=== PATIENT | male | born 1945 | race Caucasian/White ===

== ENCOUNTER 2021-12-13 08:13 | Outpatient (CLI) | payer MEDICARE, BC, SELFPAY ==
[2021-12-13 13:56] LABS: Iron* 50 ug/dL (49-181)
[2021-12-13 14:00] LABS: Albumin* 4.5 g/dL (3.3-5.0); Chloride* 104 mmol/L (96-114)
[2021-12-13 14:01] LABS: Potassium* 4.8 mmol/L (3.6-5.1); Sodium* 137 mmol/L (135-149)
[2021-12-13 14:03] LABS: Alanine Aminotransferase* 28 U/L (4-50); Alkaline Phosphatase* 89 U/L (40-150); Aspartate Amino Transferase* 24 U/L (12-35); Bilirubin Total* 0.6 mg/dL (0.1-1.5); Blood Urea Nitrogen* 20 mg/dL (7-30); Carbon Dioxide* 24 mmol/L (20-32); Cholesterol* 154 mg/dL (90-199); Creatinine* 1.3 mg/dL (0.5-1.5); Estimated Glomerular Filt Rate 58 ml/min; Glucose* 129 mg/dL (60-115); Total Protein* 6.9 g/dL (6.0-8.3)
[2021-12-13 14:04] LABS: Calcium* 9.5 mg/dL (8.4-10.6); HDL Cholesterol* 46 mg/dL (>=40); LDL Cholesterol Calculated 69 mg/dL (<100); Triglycerides* 194 mg/dL (40-149)
[2021-12-13 14:05] LABS: Percent Iron Saturation 11 % (20-50); Total Iron Binding Capacity 437 ug/dL (261-462)
[2021-12-13 14:33] LABS: PSA Screen* 0.82 ng/mL (0.10-4.00)
[2021-12-13 14:39] LABS: Ferritin* 8.2 ng/mL (17.9-464.0)
== END 2021-12-13 08:14 | disposition home or self-care (01) ==
LOC: LKVREF 08:15
PROVIDERS: PCP Family Medicine; Visit Provider Family Medicine
DX: D64.9 Anemia, unspecified (principal); E11.9 Type 2 diabetes mellitus without complications; E78.5 Hyperlipidemia, unspecified; I10 Essential (primary) hypertension; I25.10 Atherosclerotic heart disease of native coronary artery without angina pectoris
CPT/HCPCS: 80053; 80061; 82043; 82570; 82728; 83540; 83550; 84153

== ENCOUNTER 2022-04-03 10:42 | Outpatient (CLI) | payer MEDICARE, BC, SELFPAY ==
[2022-04-03 22:10] LABS: Iron* 47 ug/dL (49-181)
[2022-04-03 22:43] LABS: Ferritin* 9.2 ng/mL (17.9-464.0)
[2022-04-03 22:47] LABS: Creatinine Urine 102.8 mg/dL
[2022-04-03 22:53] LABS: Microalbumin Creatinine Ratio 0 mg/g (0-30); Microalbumin Urine 1 mg/dL
[2022-04-03 23:28] LABS: Vitamin B12* 386 pg/mL (243-894)
== END 2022-04-03 10:43 | disposition home or self-care (01) ==
PROVIDERS: PCP Family Medicine; Visit Provider Family Medicine
DX: Z00.00 Encounter for general adult medical examination without abnormal findings (principal); D64.9 Anemia, unspecified; E11.9 Type 2 diabetes mellitus without complications; E78.5 Hyperlipidemia, unspecified; I10 Essential (primary) hypertension
CPT/HCPCS: 82043; 82570; 82607; 82728; 83540

== ENCOUNTER 2023-04-05 16:10 | Outpatient (CLI) | payer MEDICARE, BC, SELFPAY | END 2023-04-05 16:11 | disposition home or self-care (01) | PROVIDERS: PCP Family Medicine; Visit Provider Family Medicine | DX: Z00.00 Encounter for general adult medical examination without abnormal findings (principal); E78.5 Hyperlipidemia, unspecified; E11.9 Type 2 diabetes mellitus without complications; E88.810 Metabolic syndrome; I25.10 Atherosclerotic heart disease of native coronary artery without angina pectoris; N40.0 Benign prostatic hyperplasia without lower urinary tract symptoms; Z86.79 Personal history of other diseases of the circulatory system | CPT/HCPCS: 80053; 80061; 82043; 82570; 84153; 85651 ==

== ENCOUNTER 2023-11-12 16:25 | Outpatient (CLI) | payer MEDICARE, BC, SELFPAY | END 2023-11-12 16:26 | disposition home or self-care (01) | PROVIDERS: PCP Family Medicine; Visit Provider Family Medicine | DX: E11.9 Type 2 diabetes mellitus without complications (principal); I10 Essential (primary) hypertension; D64.9 Anemia, unspecified; F01.50 Vascular dementia, unspecified severity, without behavioral disturbance, psychotic disturbance, mood disturbance, and anxiety; E78.5 Hyperlipidemia, unspecified; I25.10 Atherosclerotic heart disease of native coronary artery without angina pectoris; F03.90 Unspecified dementia, unspecified severity, without behavioral disturbance, psychotic disturbance, mood disturbance, and anxiety | CPT/HCPCS: 82306; 84443 ==

== ENCOUNTER 2024-04-10 16:01 | Outpatient (CLI) | payer MEDICARE, BC, SELFPAY | END 2024-04-10 16:02 | disposition home or self-care (01) | PROVIDERS: PCP Family Medicine; Visit Provider Family Medicine | DX: E88.810 Metabolic syndrome (principal); D64.9 Anemia, unspecified; E11.9 Type 2 diabetes mellitus without complications; E78.5 Hyperlipidemia, unspecified; I11.9 Hypertensive heart disease without heart failure; N40.0 Benign prostatic hyperplasia without lower urinary tract symptoms; I25.10 Atherosclerotic heart disease of native coronary artery without angina pectoris; Z12.5 Encounter for screening for malignant neoplasm of prostate | CPT/HCPCS: 80053; 80061; 82043; 82570; G0103 ==

== ENCOUNTER 2024-10-09 15:52 | Outpatient (CLI) | payer MEDICARE, BC, SELFPAY | END 2024-10-09 15:53 | disposition home or self-care (01) | PROVIDERS: PCP Family Medicine; Visit Provider Family Medicine | DX: D64.9 Anemia, unspecified (principal); K29.70 Gastritis, unspecified, without bleeding; E11.9 Type 2 diabetes mellitus without complications; Z79.84 Long term (current) use of oral hypoglycemic drugs; Z79.899 Other long term (current) drug therapy | CPT/HCPCS: 80048; 82607; 82728; 83540 ==

== ENCOUNTER 2024-11-19 10:52 | Outpatient (CLI) | payer MEDICARE, BC, SELFPAY | END 2024-11-19 10:53 | disposition home or self-care (01) | LOC: NFLDREF 11-22 20:10 | PROVIDERS: PCP Family Medicine; Referring Provider Family Medicine; Visit Provider Family Medicine | DX: K29.70 Gastritis, unspecified, without bleeding (principal); D64.9 Anemia, unspecified; E53.8 Deficiency of other specified B group vitamins | CPT/HCPCS: 82607; 82728; 83540 ==

== ENCOUNTER 2024-12-17 14:09 | Outpatient (CLI) | payer MEDICARE, BC, SELFPAY ==
--- NOTE | 2024-12-17 15:00 | CRLHL7_ITS ---
For Patients: As a result of the Century Cures Act, medical imaging exams and procedure reports are released immediately into your electronic medical record. You may view this report before your referring provider. If you have questions, please contact your health care provider. INDICATION: Iron deficiency, looking for retained agile capsule TECHNIQUE: Abdomen Pelvis radiograph 1 view COMPARISON: 10/02/2022 FINDINGS: Bowel: The epigastrium is excluded and cannot be evaluated. There is a rectangular structure with mottled internal densities, measuring 1.8 x 1.3 cm within the rectum, which most likely corresponds to the ingested Agile test capsule. The bowel gas pattern is normal without evidence of bowel obstruction. Soft tissue: No evidence of pneumoperitoneum present. No suspicious calcifications noted. Bone: Mild levoscoliosis is present. IMPRESSIONS: 1. Unremarkable appearance of the visualized abdomen. 2. There is a rectangular structure with mottled internal densities, measuring 1.8 x 1.3 cm within the rectum, which most likely corresponds to the ingested Agile test capsule. Dictated by Fransico Carmona MD @ 12/22/2024 10:21:09 AM Dictated by: Fransico Carmona MD @ 12/22/2024 10:21:15 (Electronically Signed)
== END 2024-12-17 14:10 | disposition home or self-care (01) ==
LOC: RAD 14:11
PROVIDERS: PCP Family Medicine; Visit Provider Internal Medicine
DX: D50.9 Iron deficiency anemia, unspecified (principal)
CPT/HCPCS: 74018

== ENCOUNTER 2025-01-05 18:22 | Outpatient (CLI) | payer MEDICARE, BC, SELFPAY | END 2025-01-05 18:23 | disposition home or self-care (01) | LOC: LKVREF 18:29 | PROVIDERS: PCP Family Medicine; Visit Provider Family Medicine | DX: E53.8 Deficiency of other specified B group vitamins (principal); D64.9 Anemia, unspecified; I11.9 Hypertensive heart disease without heart failure; N40.0 Benign prostatic hyperplasia without lower urinary tract symptoms | CPT/HCPCS: 80048 ==